=== PATIENT | male | born 1985 | race Caucasian/White ===

== ENCOUNTER 2020-01-16 | Emergency (ER) | payer OTHER ==
[2020-01-16 10:41] LABS: HEMATOCRIT 40.6 % (39.0-50.0); HEMOGLOBIN 13.8 g/dl (14.0-18.0); IMMATURE GRANULOCYTES 0.3 % (0.0-5.0); MEAN CELL VOLUME 91.9 fL CALC (80.0-100.0); MEAN CORPUSCULAR HGB 31.2 pG CALC (26.0-32.0); NEUT# 5.03 thou/uL (1.82-7.42); RED BLOOD COUNT 4.42 mill/uL (4.70-6.10)
[2020-01-16 11:04] LABS: ALBUMIN 4.8 g/dL (3.2-5.0); ALKALINE PHOSPHATASE 34 u/l (38-126); AMYLASE 43 u/l (30-110); ANION GAP 15 (6-22 (CALC)); BILIRUBIN, TOTAL 1.8 mg/dL (0.0-1.4); BUN 23 mg/dL (9-20); BUN/CREATININE RATIO 27 (12-20 (CALC)); CARBON DIOXIDE 23 mmol/l (22-30); CHLORIDE 103 mmol/l (95-108); CREATININE 0.9 mg/dL (0.7-1.3); GFR > 60 ML/MIN (>=60 (CALC)); GFR FOR AFR.AMER. > 60 ML/MIN (>=60 (CALC)); LIPASE 65 u/l (23-300); POTASSIUM 4.4 mmol/l (3.5-5.1); SGOT/AST 25 u/l (17-59); SODIUM 137 mmol/l (137-146); TOTAL PROTEIN 7.7 g/dL (6.3-8.2)
[2020-01-16 11:16] LABS: MYOGLOBIN 26 ng/mL (0 - 121)
[2020-01-16] MEDS ORDERED: PEPCID20 MG PO (11:23)
== END 2020-01-16 11:45 | disposition home or self-care (01) | DRG 392 ==
PROVIDERS: Family Medicine
DX: K20.9 Esophagitis, unspecified (principal); F17.200 Nicotine dependence, unspecified, uncomplicated

== ENCOUNTER 2022-10-29 17:00 | Emergency (ER) | payer SELFPAY ==
[~2022-10-29] VITALS: Ht 180.3 cm; Wt 68.2 kg
[~2022-10-29 17:00] MED LIST: PEPCID20 MG PO
[2022-10-29 17:24] VITALS: BP 106/72
[2022-10-29 17:48] VITALS: BP 106/72
== END 2022-10-29 17:48 | disposition left against medical advice (07) | DRG 951 ==
LOC: ED 17:00 → LWOBS 17:47
DX: Z53.21 Procedure and treatment not carried out due to patient leaving prior to being seen by health care provider (principal)